=== PATIENT | male | born 1945 | race Caucasian/White ===

== ENCOUNTER 2025-02-27 07:20 | Day surgery (SDC) | payer MEDICARE ==
[2025-02-26 14:43] LABS: MEAN PLATELET VOLUME 7.1 FL (7.4-10.4); RED CELL DISTRIBUTION WIDTH 15.5 % (11.5-14.5)
[2025-02-26 14:55] LABS: CREATININE 1.84 MG/DL (0.60-1.10); TOTAL CARBON DIOXIDE 25.7 MMOL/L (24-32); eGFR 36 ML/MIN
[2025-02-26 15:00] LABS: APTT 25 SECONDS (22-32); INR 1.1 INR
[~2025-02-27] VITALS: Ht 175.3 cm; Wt 105.6 kg
[2025-02-27] VITALS (16 sets, daily range): BP systolic 95–154; BP diastolic 50–83; PULSE 16–83; RESP 11–21; TEMP 97.6; O2SAT 96–99
--- NOTE | 2025-02-27 08:04 | ELECTROCARDIOGRAPH REPORT ---
[facility] Test Date: 2025-02-27 Test Time: 08:00:19 Pat Name: ANDRE VÁSQUEZ Department: [facility] Patient ID: [id number] Room: Gender: M It Security Engineer: : 1945 Requested By: PINO LAWRENCE Order Number: [id number] Reading MD: Dr. NAHEED Lawrence Measurements Intervals [place] Rate: 62 P: 0 AK: 0 QRS: 24 QRSD: 134 T: 216 QT: 423 QTc: 430 Interpretive Statements Atrial fibrillation Ventricular premature complex Left bundle branch block Baseline wander in lead(s) V1 Electronically Signed On 02-27-2025 19:48:[address] NAHEED Lawrence Please click the below link to view image of tracing.
[2025-02-27] MEDS ORDERED: sodium bicarbonate 1meq/ml inj 150 ML in dextrose 5%-water 1,000 ML IV SCH (08:50)
[2025-02-27] MEDS ORDERED: FURO40TA4 PO (08:59)
[2025-02-27] MEDS ORDERED: METO5TAB7 PO (08:59)
[2025-02-27] MEDS ORDERED: TAMS-55 PO (08:59)
[2025-02-27] MEDS ORDERED: DIGO125T97 PO (08:59)
[2025-02-27] MEDS ORDERED: WARF-55 PO (08:59)
[2025-02-27] MEDS ORDERED: LOSA-415 PO (08:59)
[2025-02-27] MEDS ORDERED: CARV6.252 PO (08:59)
[2025-02-27] MEDS: sodium bicarbonate 1meq/ml inj 150 ML in dextrose 5%-water 1,000 ML IV ONE (09:41)
[2025-02-27] MEDS ORDERED: verapamil 2.5 mg/ml inj IV ONE (09:55)
[2025-02-27] MEDS ORDERED: LIDOcaine 1% (10mg/ml) 2ml vial ONE (09:55)
[2025-02-27] MEDS ORDERED: fentaNYL/PF 50MCG/1 ML 2ML syringe ONE (09:56)
[2025-02-27] MEDS ORDERED: heparin 1,000unit/ml 10ml vial 10 ML ONE (09:56)
[2025-02-27] MEDS ORDERED: iohexol 350 MG/ML 50ML vial IV ONE (09:56)
[2025-02-27] MEDS ORDERED: nitroGLYCERIN 500mcg/5mL D5W 5 ML IV ONE (09:56)
[2025-02-27] MEDS ORDERED: midazolam 1 mg/ML 2ml injection ONE (09:56)
[2025-02-27] MEDS ORDERED: LIDOcaine 1% 30ml preserv. free vial ONE (11:04)
[2025-02-27] MEDS ORDERED: hydrALAZINE 20mg/ml inj. ONE ×2 (11:10→11:37)
[2025-02-27 11:50] LABS: ISTAT HGB ART 7.8 g/dl (14.0-17.9); ISTAT Hct ART 23 %PCV (42-52); ISTAT O2 SATURATION ARTERIAL 98 % (95-98); ISTAT SOURCE ART
[2025-02-27] MEDS ORDERED: HYDROcodone/acetaminophen 5mg/325mg tablet PO PRN (12:30)
[2025-02-27] MEDS: HYDROcodone/acetaminophen 10/325mg tab PO PRN (13:20)
[2025-02-28 06:33] LABS: ISTAT HGB MIX 7.5 g/dl (14.0-17.9); ISTAT Hct MIX 22 %PCV (42-52); ISTAT O2 SATURATION MIX VENOUS 60 % (60-80); ISTAT SOURCE VEN
--- NOTE | 2025-02-28 21:46 | CARDIOLOGY REPORT ---
DATE OF SERVICE: 02/27/2025 DICTATING PHYSICIAN: NAHEED Dill MD CARDIAC CATHETERIZATION GENDER: Male. AGE: 79. HEIGHT: 175 cm. WEIGHT: 105 kg. BODY SURFACE AREA: 2.2 meters square. PRIMARY PHYSICIAN: Sands MD UPPER CUTTER MACHINE: NAHEED Dill MD INDICATION: The patient is a 79-year-old male with a history of hypertension, hyperlipidemia, CAD, cardiomyopathy, paroxysmal atrial fibrillation, and was presented with progressively increasing exertional fatigue and shortness of breath. The patient also had myocardial perfusion scan 07/31 was negative for ischemia. However, the patient has been developing progressively worsening cardiomyopathy. He did have history of cardiomyopathy back in 2008 with an EF of 25-30%. It did improve to 60-65% in 2013 and it dropped to 40% subsequently but in the last echocardiogram on 06/25/2019 showed ejection of 20%, moderate to severe MR, moderate TR, moderate aortic stenosis, aortic valve area 1.2 cm2, PA systolic 52 mmHg. In the office progressive symptoms. After discussing risks, benefits and alternative options, the patient underwent coronary angiography. Risks, benefits, and alternative options were discussed. Informed consent obtained. The patient also has CKD. He has been treated with hydration, Mucomyst, and bicarbonate. PROCEDURES DONE: * Ultrasound-guided right radial artery visualization and access. * Right heart catheterization. * Left heart catheterization. * LVG. * Coronary cineangiography. * Conscious sedation 60 minutes. * Right radial arteriogram. PROCEDURE TECHNIQUE: Initially, the patient's right radial axis was tried, he had a moderately calcified right radial artery. We were able to cannulate and get the catheter all the way up to the aorta because of the extreme tortuosity of the brachiocephalic system. The right coronary artery could not be manipulated and hence it shifted to the right femoral approach, 6-English right femoral artery sheath. Postprocedure access site hemostasis was secured with manual compression. The patient tolerated the procedure well. COMPLICATIONS: None. FINDINGS: HEMODYNAMICS: Aortic systolic 150, diastolic 62, mean 102 mmHg. LVEDP of 11 mmHg. There is no significant gradient across the aortic valve. Right atrial mean 2 mmHg. RV systolic 26 mmHg. PA 27/12 mmHg. Pulmonary capillary 15 mmHg. Aortic oxygen saturation 96%. Pulmonary artery oxygen saturation 60%. Cardiac output by thermodilution method 6.2 liters per minute. Cardiac index 2.82 liters per minute per meter squared. LEFT VENTRICULOGRAM: LVEF of about 20-25%. CORONARY CINEANGIOGRAPHY: Left main coronary artery is a large caliber vessel with minimal luminal irregularities. Distally has an eccentric 30% narrowing. LAD is medium caliber arising at the bifurcation of the left main coronary artery, courses through the anterior interventricular groove, wrapping around the apex. diagonal is 2.25 mm with minimal luminal irregularity. The circumflex artery is a medium caliber vessel arising at the bifurcation of the left main, courses through the left AV groove. OM1 is 3 mm caliber with minimal luminal irregularities and OM after the mid circumflex has a long narrowing about 80%. Severity. There is a distal OM which is 2.04 with mild luminal irregularities. Right coronary artery is medium caliber vessel arising from the right aortic sinus, courses through the right AV groove and ends at the posterior crux by dividing into PDA and a posterolateral branch. The proximal RCA has 90% narrowing. Remainder of RCA has areas of 20-30% narrowing. I MPRESSION: A 79-year-old male with LV ejection fraction of about 25%. LVEDP of 11 mmHg with no significant gradient across the aortic valve. PA systolic pressure of 27 mmHg. Left main distal 30% narrowing. LAD with mild luminal irregularities. Mid LAD shows areas of 20-30% narrowing. Left circumflex with long narrowing with worst area with 80% narrowing. Proximal RCA with 90% narrowing. There are areas of 20-30% narrowing of the RCA. In view of his CKD, it was decided to stage the procedure. The patient will be brought back next week for stenting of the LAD and RCA and circumflex artery. Risks, benefits, and alternative options were discussed in detail with the patient and family. NAHEED Dill MD TID: [id number] RECEIPT: [id number] /YONAS Cc Sands MD [place] [facility] CENTERShannan
== END 2025-02-27 19:00 | disposition home or self-care (01) ==
LOC: SSTAY O 07:20
PROVIDERS: ATTEND Internal Medicine Cardiovascular Disease
DX: I25.119 Atherosclerotic heart disease of native coronary artery with unspecified angina pectoris (principal); I44.7 Left bundle-branch block, unspecified; I48.0 Paroxysmal atrial fibrillation; I49.3 Ventricular premature depolarization; I13.0 Hypertensive heart and chronic kidney disease with heart failure and stage 1 through stage 4 chronic kidney disease, or unspecified chronic kidney disease; N18.9 Chronic kidney disease, unspecified; I50.22 Chronic systolic (congestive) heart failure; E78.5 Hyperlipidemia, unspecified; R53.83 Other fatigue; I35.0 Nonrheumatic aortic (valve) stenosis; I42.0 Dilated cardiomyopathy; Z79.899 Other long term (current) drug therapy; G47.30 Sleep apnea, unspecified; I34.0 Nonrheumatic mitral (valve) insufficiency; E66.9 Obesity, unspecified; Z95.5 Presence of coronary angioplasty implant and graft; Z79.01 Long term (current) use of anticoagulants; Z68.34 Body mass index [BMI] 34.0-34.9, adult; Z90.49 Acquired absence of other specified parts of digestive tract; Z83.6 Family history of other diseases of the respiratory system; Z60.2 Problems related to living alone; Z87.891 Personal history of nicotine dependence
CPT/HCPCS: 36140; 36415; 80048; 82803; 85014; 85025; 85610; 85730; 93005; 93460; 99152; 99153; A4314; A6258; A6402; C1725; C1751; C1769; C1894; J0360; J1200; J1644; J1938; J2003; J2250; J3010; J3490; J7030; J7070; Q0163; Q9967; Z7610; 76937; A6449

== ENCOUNTER 2025-03-06 10:30 | Day surgery (SDC) | payer MEDICARE ==
[~2025-03-06] VITALS: Ht 175.3 cm; Wt 102.4 kg
[2025-03-06] VITALS (10 sets, daily range): BP systolic 110–160; BP diastolic 44–89; PULSE 65–73; RESP 13–18; TEMP 97.8; O2SAT 98–100
[2025-03-06 08:34] LABS: MEAN PLATELET VOLUME 7.1 FL (7.4-10.4); RED CELL DISTRIBUTION WIDTH 16.8 % (11.5-14.5)
[2025-03-06 08:42] LABS: CREATININE 2.10 MG/DL (0.60-1.10); TOTAL CARBON DIOXIDE 25.8 MMOL/L (24-32); eGFR 31 ML/MIN
[2025-03-06 08:46] LABS: APTT 26 SECONDS (22-32); INR 1.1 INR
[~2025-03-06 10:30] MED LIST: CARV6.252 PO; DIGO125T97 PO; FURO40TA4 PO; LOSA-415 PO; METO5TAB7 PO; TAMS-55 PO; WARF-55 PO
--- NOTE | 2025-03-06 11:42 | ELECTROCARDIOGRAPH REPORT ---
[facility] Test Date: 2025-03-06 Test Time: 11:38:12 Pat Name: ANDRE VÁSQUEZ Department: [facility] Patient ID: [id number] Room: Gender: M Tow Bar Driver: DESIREE : 1945 Requested By: PINO LAWRENCE Order Number: [id number] Reading MD: Dr. NAHEED Lawrence Measurements Intervals [place] Rate: 74 P: 0 UT: 0 QRS: 26 QRSD: 137 T: 223 QT: 434 QTc: 482 Interpretive Statements Atrial fibrillation Left bundle branch block Electronically Signed On 03-06-2025 17:29:[address] NAHEED Lawrence Please click the below link to view image of tracing.
[2025-03-06] MEDS: sodium bicarbonate 1meq/ml syr 150 ML in dextrose 5%-water 1,000 ML IV ONE (12:10)
[2025-03-06] MEDS ORDERED: heparin 25,000 UNIT/250ml bag 250 ML IV ONE (12:46)
[2025-03-06] MEDS ORDERED: midazolam 1 mg/ML 2ml injection ONE (12:47)
[2025-03-06] MEDS ORDERED: iohexol 350 MG/ML 50ML vial IV ONE ×2 (12:47→14:37)
[2025-03-06] MEDS ORDERED: LIDOcaine 1% (10mg/ml) 2ml vial ONE (12:47)
[2025-03-06] MEDS ORDERED: fentaNYL/PF 50MCG/1 ML 2ML syringe ONE (12:47)
[2025-03-06] MEDS ORDERED: heparin 1,000unit/ml 10ml vial 10 ML ONE ×2 (12:47→14:47)
[2025-03-06] MEDS ORDERED: nitroGLYCERIN 500mcg/5mL D5W 5 ML IV ONE ×2 (12:47→14:13)
[2025-03-06] MEDS ORDERED: verapamil 2.5 mg/ml inj IV ONE (12:47)
[2025-03-06] MEDS ORDERED: phenylephrine 10mg/ml inj. ONE (13:04)
[2025-03-06] MEDS ORDERED: LIDOcaine 1% 30ml preserv. free vial ONE (13:38)
[2025-03-06] MEDS ORDERED: atropine 0.1mg/ml 10ml syringe ONE (13:56)
[2025-03-06] MEDS ORDERED: DOPamine 400mg/D5W 250ml 0 ML IV ONE (14:03)
[2025-03-06] MEDS ORDERED: hydrALAZINE 20mg/ml inj. ONE (14:50)
[2025-03-06] MEDS ORDERED: clopidogrel 300mg tablet ONE (14:51)
--- NOTE | 2025-03-06 15:38 | ELECTROCARDIOGRAPH REPORT ---
[facility] Test Date: 2025-03-06 Test Time: 15:33:41 Pat Name: ANDRE VÁSQUEZ Department: [facility] Patient ID: [id number] Room: Gender: M Software Quality Automation Engineer: DESIREE : 1945 Requested By: PINO LAWRENCE Order Number: [id number] Reading MD: Dr. NAHEED Lawrence Measurements Intervals [place] Rate: 67 P: 0 MA: 0 QRS: 45 QRSD: 142 T: 232 QT: 412 QTc: 435 Interpretive Statements Atrial fibrillation Ventricular premature complex Left bundle branch block Baseline wander in lead(s) V3 Electronically Signed On 03-06-2025 17:29:[address] NAHEED Lawrence Please click the below link to view image of tracing.
[2025-03-06] MEDS: HYDROcodone/acetaminophen 5mg/325mg tablet PO ONE (16:05)
[2025-03-06] MEDS ORDERED: CLOP-32 PO (16:11)
[2025-03-06] MEDS ORDERED: ASPI-416 PO (16:15)
[2025-03-06] MEDS ORDERED: ROSU40TA PO (16:16)
--- NOTE | 2025-03-06 23:12 | CARDIOLOGY REPORT ---
DATE OF SERVICE: 03/06/2025 DICTATING PHYSICIAN: NAHEED Dill MD GENDER: Male. AGE: 79 years. HEIGHT: 175 cm. WEIGHT: 102 kilos. BODY SURFACE AREA: 2.1 cm2 PRIMARY PHYSICIAN: Rich Cain MD DRAFTER COMMERCIAL: NAHEED Dill MD INDICATION: The patient is a 79-year-old male with hypertension, hyperlipidemia, CAD, cardiomyopathy, atrial fibrillation, who underwent coronary angiography on 02/27/2025 and found to have EF of 25%, LAD medially 20-30%, left circumflex long 80% narrowing, and proximal RCA 90% and ostial 70% narrowing. Because of his CKD, his coronary intervention was staged, he was hydrated, treated with bicarbonate, no saline. He has been brought back for coronary angiography. Risks, benefits, and alternative options discussed and informed consent obtained. PROCEDURE: The patient underwent coronary cineangiography from right femoral approach because of the inability to engage the artery adequately from right radial approach, 6-Swedish right femoral arterial sheath. Post-procedure access site hemostasis secured with Perclose. The patient tolerated the procedure well. COMPLICATIONS: None. PROCEDURES DONE: 1. Ultrasound-guided right femoral arterial approach access. 2. PTCA stenting of the ostial and proximal RCA lesion. 3. PTCA stenting of the mid circumflex artery. 4. Conscious sedation time of 75 minutes. FINDINGS: HEMODYNAMICS: Aortic systolic 140, diastolic 64 mmHg. PTCA STENTING OF THE RCA, OSTIAL 70% AND PROXIMAL 90%: A 6-Swedish XP RCA guide gave good support. The lesion was crossed with a PT2 moderate wire. The lesion was angioplastied with 2.5/25 NC balloon at 12 followed by 14 atmospheres of pressure. Both the lesions were stented with 3 x 30 mm Vansant Brooks stent deployed at 12 followed by 16 atmospheres of pressure. The lesion was postdilated with 3.5/15 balloon at 14 atmospheres with LINDA 3 flow. The ostium was dilated with 16 atmospheres. PTCA STENTING OF THE LONG MID 80% NARROWING OF THE CIRCUMFLEX: A 6-Swedish XP C4 guide gave good support. The lesion crossed with PT2 moderate wire. Lesion angioplastied with 2/15 Euphora balloon at 8 followed by 10 atmospheres of pressure. The lesion was stented with 2.25/34 Resolute Vansant stent at 12 atmospheres of pressure. The proximal 3/4th of the stent postdilated to 2.5 mm, post-procedure 0% with LINDA 3 flow. The patient tolerated the procedure with no complications. IMPRESSION: A 79-year-old male with 70% right coronary ostium, proximal 90%, successfully angioplastied and stented with 3/30 Resolute Vansant stent, postdilated with 3.5/15 balloon with LINDA 3 flow. Long mid 80% narrowing of circumflex was angioplastied and stented with 2.25/34 mm Cody stent, with proximal 3/4th of the stent postdilated to 2.5 mm, post-procedure 0% with LINDA 3 flow. The patient tolerated the procedure with no complications. NAHEED Dill MD TID: [id number] RECEIPT: [id number] REINALDO/LAKESHIA cc: Rich Cain MD
[2025-03-07] MEDS ORDERED: aspirin 81mg, enteric-coated 1 TAB TABLET.DR PO SCH (08:00)
== END 2025-03-06 19:58 | disposition home or self-care (01) ==
LOC: SSTAY O 10:30
PROVIDERS: ATTEND Internal Medicine Cardiovascular Disease
DX: I25.119 Atherosclerotic heart disease of native coronary artery with unspecified angina pectoris (principal); I49.3 Ventricular premature depolarization; I44.7 Left bundle-branch block, unspecified; I11.0 Hypertensive heart disease with heart failure; I50.22 Chronic systolic (congestive) heart failure; E78.5 Hyperlipidemia, unspecified; I42.0 Dilated cardiomyopathy; I48.20 Chronic atrial fibrillation, unspecified; E66.9 Obesity, unspecified; I34.0 Nonrheumatic mitral (valve) insufficiency; I35.0 Nonrheumatic aortic (valve) stenosis; G47.30 Sleep apnea, unspecified; Z79.01 Long term (current) use of anticoagulants; Z79.899 Other long term (current) drug therapy; Z90.49 Acquired absence of other specified parts of digestive tract; Z68.35 Body mass index [BMI] 35.0-35.9, adult; Z82.5 Family history of asthma and other chronic lower respiratory diseases
CPT/HCPCS: 36415; 80048; 85025; 85347; 85610; 85730; 93005; 99152; 99153; A4314; A6258; C1725; C1751; C1760; C1769; C1874; C9600; J0360; J0461; J1644; J2003; J2250; J3010; J3490; J7030; J7070; Q0163; Q9967; Z7610; J1265; J2371